=== PATIENT | female | born 1950 | race American Indian/Alaskan Native ===

== ENCOUNTER 2021-03-14 15:08 | Emergency (ER) | payer SELFPAY ==
[2021-03-14] MEDS ORDERED: HEPARIN 10,000 UNITS/10 ML VIAL IV PRN (15:23)
--- NOTE | 2021-03-14 16:07 | XRay Report ---
CHEST 2 VIEWS INDICATION / CLINICAL INFORMATION: Dysrhythmia. COMPARISON: None available. FINDINGS: SUPPORT DEVICES: None. HEART / MEDIASTINUM: No significant abnormality. LUNGS / PLEURA: No significant pulmonary or pleural abnormality. No pneumothorax. ADDITIONAL FINDINGS: No significant additional findings. IMPRESSION: 1. No acute findings. Signer Name: Liliane Higginbotham MD Signed: 03/14/2021 4:02 PM Workstation Name: [id number]
[2021-03-14 16:45] LABS: Creatine Kinase MB 3.7 ng/mL (0.0-4.0)
[2021-03-14 16:47] LABS: Alanine Aminotransferase 7 units/L (7-56); Albumin 4.7 g/dL (3.9-5); BUN/Creatinine Ratio 13; Blood Urea Nitrogen 10 mg/dL (7-17); Calcium 10.3 mg/dL (8.4-10.2); Hemolysis Index 4
[2021-03-14 16:53] LABS: Basophils % (Auto) 0.5 % (0.0-1.8); Eosinophils % (Auto) 0.6 % (0.0-4.3); Hematocrit 41.5 % (30.3-42.9); Hemoglobin 14.2 gm/dl (10.1-14.3); Lymphocytes # (Auto) 0.9 K/mm3 (1.2-5.4); Lymphocytes % (Auto) 18.2 % (13.4-35.0); Mean Corpuscular HGB Conc 34 % (30-34); Mean Corpuscular Volume 87 fl (79-97); Monocytes # (Auto) 0.3 K/mm3 (0.0-0.8); Monocytes % (Auto) 5.2 % (0.0-7.3); Platelet Count 250 K/mm3 (140-440); Red Blood Count 4.78 M/mm3 (3.65-5.03); Red Cell Distribution Width 13.7 % (13.2-15.2)
[2021-03-14 17:04] LABS: INR 0.97 (0.87-1.13)
--- NOTE | 2021-03-15 02:47 | Emergency Department Report ---
ED Palpitations HPI - General Chief Complaint: Arrhythmia/Palpitations Stated Complaint: HEART PALPATATIONS/VOMITING Time Seen by Provider: 03/15/21 02:19 Source: patient Mode of arrival: Ambulatory Limitations: No Limitations - History of Present Illness Initial Comments: 70-year-old female the past medical history diabetes and bipolar disorder presents to the hospital complaining of palpitations today. Patient states she has had similar palpitations for the past when she does not get enough sleep or is anxious. Patient states she ran out of her [id number]-[id number] medication equate p.m. and therefore has not been getting enough sleep. Patient states she had one episode of vomiting in the waiting room because Krishna did not agree with her. She denies chest pain, shortness of breath, rob pain, diarrhea, cough, or fever. Patient is not currently on any psychiatric medication but has been placed on antipsychotics in the past. She is pleasant and denies urinary symptoms, suicidal, homicidal ideation. She is symptom free at this time. P atient states 2 to 3 weeks ago she had bilateral leg ultrasounds to rule out DVT because she was having leg swelling. She states she has not had any recurrent leg swelling or pain - Related Data Allergies Allergy/AdvReac Type Severity Reaction Status Date / Time amitriptyline [From Elavil] Allergy Unknown Verified 03/14/21 15:16 ED Review of Systems ROS: Stated complaint: HEART PALPATATIONS/VOMITING Other details as noted in HPI Comment: All other systems reviewed and negative ED Past Medical Hx - Past Medical History Previous Medical History?: Yes Hx Diabetes: Yes Hx Psychiatric Treatment: Yes (bipolar) - Surgical History Past Surgical History?: Yes Additional Surgical History: partial hyst - Social History Smoking Status: Never Smoker Substance Use Type: None ED Physical Exam - General Limitations: No Limitations - Other Other exam information: General: No acute distress Head: Atraumatic Eyes: normal appearance ENT: Moist mucous membranes Neck: Normal appearance, no midline tenderness Chest: Clear to auscultation bilaterally CV: Regular rate and rhythm Abdomen: Soft, normal bowel sounds, nontender, nondistended, no rebound or guarding Back: Normal inspection Extremity: Normal inspection, full range of motion, no calf tenderness or leg edema Neuro: Alert O x 3, no facial asymmetry, speech clear, no gross motor sensory deficit Psych: Very talkative but pleasant Skin: No rash ED Course Vital Signs 03/14/21 03/15/21 03/15/21 15:19 01:53 01:54 Temperature 98.3 F Pulse Rate 71 Respiratory 18 Rate Blood Pressure 158/75 Blood Pressure 212/135 [Right] O2 Sat by Pulse 97 99 98 Oximetry 03/15/21 03/15/21 01:57 02:00 Temperature Pulse Rate 92 H Respiratory 31 H 22 Rate Blood Pressure 158/75 Blood Pressure [Right] O2 Sat by Pulse 99 99 Oximetry ED Medical Decision Making - Lab Data Result diagrams: 03/14/21 16:04 03/14/21 16:04 Lab Results 03/14/21 03/14/21 03/14/21 Range/Units 16:04 16:04 16:04 WBC 4.9 (4.5-11.0) K/mm3 RBC 4.78 (3.65-5.03) M/mm3 Hgb 14.2 (10.1-14.3) gm/dl Hct 41.5 (30.3-42.9) % MCV 87 (79-97) fl MCH 30 (28-32) pg MCHC 34 (30-34) % RDW 13.7 (13.2-15.2) % Plt Count 250 (140-440) K/mm3 Lymph % (Auto) 18.2 (13.4-35.0) % Hemphill % (Auto) 5.2 (0.0-7.3) % Eos % (Auto) 0.6 (0.0-4.3) % Baso % (Auto) 0.5 (0.0-1.8) % Lymph # (Auto) 0.9 L (1.2-5.4) K/mm3 Hemphill # (Auto) 0.3 (0.0-0.8) K/mm3 Eos # (Auto) 0.0 (0.0-0.4) K/mm3 Baso # (Auto) 0.0 (0.0-0.1) K/mm3 Seg Neutrophils % 75.5 H (40.0-70.0) % Seg Neutrophils # 3.7 (1.8-7.7) K/mm3 PT 13.4 (12.2-14.9) Sec. INR 0.97 (0.87-1.13) APTT 28.0 (24.2-36.6) Sec. Sodium 135 L (137-145) mmol/L Potassium 3.9 (3.6-5.0) mmol/L Chloride 96.3 L (98-107) mmol/L Carbon Dioxide 27 (22-30) mmol/L Anion Gap 16 mmol/L BUN 10 (7-17) mg/dL Creatinine 0.8 (0.6-1.2) mg/dL Estimated GFR > 60 ml/min BUN/Creatinine Ratio 13 % Glucose 161 H (65-100) mg/dL Calcium 10.3 H (8.4-10.2) mg/dL Total Bilirubin 0.40 (0.1-1.2) mg/dL AST 15 (5-40) units/L ALT 7 (7-56) units/L Alkaline Phosphatase 105 (35-129) units/L Total Creatine Kinase 40 (30-135) units/L CK-MB (CK-2) 3.7 (0.0-4.0) ng/mL CK-MB (CK-2) Rel Index 9.2 H (0-4) Troponin T < 0.010 (0.00-0.029) ng/mL Total Protein 8.6 H (6.3-8.2) g/dL Albumin 4.7 (3.9-5) g/dL Albumin/Globulin Ratio 1.2 % TSH (0.270-4.200) mlU/mL 03/14/21 03/14/21 Range/Units 16:04 19:50 WBC (4.5-11.0) K/mm3 RBC (3.65-5.03) M/mm3 Hgb (10.1-14.3) gm/dl Hct (30.3-42.9) % MCV (79-97) fl MCH (28-32) pg MCHC (30-34) % RDW (13.2-15.2) % Plt Count (140-440) K/mm3 Lymph % (Auto) (13.4-35.0) % Hemphill % (Auto) (0.0-7.3) % Eos % (Auto) (0.0-4.3) % Baso % (Auto) (0.0-1.8) % Lymph # (Auto) (1.2-5.4) K/mm3 Hemphill # (Auto) (0.0-0.8) K/mm3 Eos # (Auto) (0.0-0.4) K/mm3 Baso # (Auto) (0.0-0.1) K/mm3 Seg Neutrophils % (40.0-70.0) % Seg Neutrophils # (1.8-7.7) K/mm3 PT (12.2-14.9) Sec. INR (0.87-1.13) APTT (24.2-36.6) Sec. Sodium (137-145) mmol/L Potassium (3.6-5.0) mmol/L Chloride (98-107) mmol/L Carbon Dioxide (22-30) mmol/L Anion Gap mmol/L BUN (7-17) mg/dL Creatinine (0.6-1.2) mg/dL Estimated GFR ml/min BUN/Creatinine Ratio % Glucose (65-100) mg/dL Calcium (8.4-10.2) mg/dL Total Bilirubin (0.1-1.2) mg/dL AST (5-40) units/L ALT (7-56) units/L Alkaline Phosphatase (35-129) units/L Total Creatine Kinase (30-135) units/L CK-MB (CK-2) (0.0-4.0) ng/mL CK-MB (CK-2) Rel Index (0-4) Troponin T < 0.010 (0.00-0.029) ng/mL Total Protein (6.3-8.2) g/dL Albumin (3.9-5) g/dL Albumin/Globulin Ratio % TSH 0.883 (0.270-4.200) mlU/mL - EKG Data -: EKG Interpreted by Me (LVH) EKG shows normal: sinus rhythm, ST-T waves (No STEMI) Rate: normal (69) - Medical Decision Making 70-year-old female presents to the hospital with palpitations prior to arrival. Patient does not have any symptoms of palpitations or persistent tachycardia in the ED peer initial hypotension spontaneously improved without treatment. Patient has bipolar disorder and is not currently on medications. Follow-up with PMD and psych encouraged. Patient plans to obtain more equally p.m. from the drugstore to help with sleeping Critical Care Time: No Critical care attestation.: If time is entered above; I have spent that time in minutes in the direct care of this critically ill patient, excluding procedure time. ED Disposition Clinical Impression: Anxiety Disposition: DC-01 TO HOME OR SELFCARE Is pt being admited?: No Does the pt Need Aspirin: No Condition: Stable Instructions: Managing Anxiety, Adult Additional Instructions: Follow-up with your doctor or doctor/clinic provided. Return if symptoms worsen as indicated by your discharge instructions. Referrals: PRIMARY CARE, [Primary Care Provider] - 3-5 Days [facility] [Provider Group] - 3-5 Days [facility] [Outside] - 3-5 Days
[2021-03-15 03:56] VITALS: BP 158/75
--- NOTE | 2021-03-15 10:10 | Electrocardiograph Report ---
[facility] Test Date: 2021-03-14 Test Time: 15:21:31 Pat Name: PRINCESS RAYA Department: Room: Gender: F [employer] Teacher: JEFF ESPINOSAB: 1950 Requested By: PATRIA COBB Order Number: [id number] Reading MD: Bon Montoya Measurements Intervals [place] Rate: 69 P: 66 AK: 146 QRS: 55 QRSD: 75 T: 182 QT: 415 QTc: 444 Interpretive Statements Sinus rhythm Probable left atrial enlargement Probable LVH with secondary repol abnrm No previous ECG available for comparison Electronically Signed On 03-15-2021 10:10:44 EDT by Bon Montoya
== END 2021-03-15 03:40 | disposition home or self-care (01) ==
LOC: ED 15:08
DX: F41.8 Other specified anxiety disorders (principal); E11.8 Type 2 diabetes mellitus with unspecified complications; F31.9 Bipolar disorder, unspecified; Z98.890 Other specified postprocedural states; Z88.8 Allergy status to other drugs, medicaments and biological substances
CPT/HCPCS: 36415; 71046; 80053; 82550; 82553; 84443; 84484; 85025; 85610; 85730; 93005; 99283

== ENCOUNTER 2021-03-15 15:50 | Emergency (ER) | payer MEDICARE, OTHER ==
[2021-03-15 16:40] LABS: Hematocrit 42.2 % (30.3-42.9); Hemoglobin 14.2 gm/dl (10.1-14.3); Mean Corpuscular HGB Conc 34 % (30-34); Mean Corpuscular Volume 88 fl (79-97); Platelet Count 254 K/mm3 (140-440); Red Cell Distribution Width 14.3 % (13.2-15.2)
--- NOTE | 2021-03-15 16:43 | Cat Scan Report ---
CT head/brain wo con INDICATION / CLINICAL INFORMATION: 70 years Female; CODE STROKE CALL [phone]. TECHNIQUE: Routine CT head without contrast. All CT scans at this location are performed using CT dos e reduction for ALARA by means of automated exposure control. COMPARISON: None. FINDINGS: BRAIN / INTRACRANIAL CONTENTS: There is suggestion of subtle loss of aden/white differentiation in th e insular cortex region on the right when compared with the left. There may be a small focus of throm bus in a branch MCA vessel in the right sylvian fissure, as well. Branch PICA infarct seen inferomedially in the right cerebellar hemisphere. Small lacunar infarcts se en in the gangliocapsular regions. There may be subtle loss of aden/white differentiation in the middle frontal gyral region of the righ t frontal lobe, although findings could be artifactual from hyperostosis frontalis interna. Otherwise, no acute hemorrhage, mass effect, midline shift, hydrocephalus, or acute, large territori al infarct. Mild, diffuse cerebral and cerebellar atrophy. There are moderate areas of decreased attenuation in the white matter of the cerebral hemispheres, as well as the gangliocapsular regions. These are nonspecific findings and may be related to microangio ro (hypertension, diabetes, atherosclerosis), given the patient's age. Pontine disease noted. CRANIOCERVICAL JUNCTION: No significant abnormality. ORBITS: No significant abnormality of visualized orbits. SINUSES / MASTOIDS: Visualized paranasal sinuses and mastoid air cells are essentially clear. ADDITIONAL FINDINGS: Mild temporomandibular joint disease noted. IMPRESSION: 1. Early ischemic changes in the right frontal lobe cannot be excluded as described above. No additio n, there may be a small focus of thrombus in a MCA branch in the sylvian fissure region on the right. 2. Otherwise, no focal mass, hemorrhage, hydrocephalus, or acute, large territorial infarct. CODE STROKE: Exam Completed (TEASEL SETTER/CDT): 03/15/2021 3:27 PM, Central standard time Exam Reviewed (TEASEL SETTER/CDT): 3:33 PM Time of Communication (TEASEL SETTER/CDT): 3:36 PM Licensed Practitioner Receiving Report: Dr. Maldonado Signer Name: Arcenio Rice MD, III Signed: 03/15/2021 4:38 PM Workstation Name: [id number]
--- NOTE | 2021-03-15 16:49 | Emergency Department Report ---
Blank Doc - Documentation Documentation: [facility] Consult Note # Demographics Consult Type: Acute Stroke Level 2 (4.5-24 hrs) Patient Location: Emergency Room First Name: Valeria Last Name: Chung Date of : 1950 Age: 70 Gender: Female Time of Initial Page (): 03/15/2021, 16:12 Time of Return Call (): 03/15/2021, 16:12 # HPI History: 70 yo woman who was last well at 0400 with left sided weakness , dysarthria. no blood thinners. # Scores Time of exam and NIHSS (): 03/15/2021, 16:43 Level of Consciousness 1a: [0] = Alert; keenly responsive LOC Questions 1b: [0] = Answers both questions correctly LOC Commands 1c: [0] = Performs both tasks correctly Best Gaze 2: [2] = Forced deviation Visual 3: [0] = No visual loss Facial Palsy 4: [2] = Partial paralysis Motor Arm Left 5a: [3] = No effort against gravity Motor Arm Right 5b: [0] = No drift Motor Leg Left 6a: [3] = No effort against gravity Motor Leg Right 6b: [0] = No drift Limb Ataxia 7: [0] = Absent Sensory 8: [0] = Normal Best Language 9: [0] = No aphasia Dysarthria 10: [2] = Severe dysarthria Extinction and Inattention 11: [2] = Profound memo-inattention or extinction to more than one modality NIHSS Total: 14 # Data Time Head CT personally read by me (): 03/15/2021, 16:[address]: no bleed # Assessment Impression: acute ischemic stroke suspect lvo # Plan Thrombolytic/Intervention: NOT IV Thrombolysis or IA Intervention candidate Thrombolytic Exclusion: > 4.5 hours Intraarterial Exclusion: pending stat CTA Target Blood Pressure: SBP < 220 Labs: CBC comprehensive metabolic panel lipid panel TSH ua Other: consult on-site neurology service for full work-up and evaluation recommendations If patient has any neurological deterioration please call me back immediately I have discussed my recommendations with the referring provider Additional Recommendations: CTA stat now if LVO is present, stat transfer to IA capable facility if no large vessel occlusion detected, admit for stroke work up, aspirin rectally. MRI brain. echo. Disposition: admit # Logistics Telemedicine: Interactive 2 way audio and visual telecommunication technology was utilized during this visit
[2021-03-15 16:52] LABS: Partial Thromboplastin Time 27.7 Sec. (24.2-36.6)
[2021-03-15 17:23] LABS: BUN/Creatinine Ratio 17; Blood Urea Nitrogen 17 mg/dL (7-17); Calcium 10.5 mg/dL (8.4-10.2); Hemolysis Index 11
[2021-03-15 17:58] LABS: Total Cells Counted 100
[2021-03-15 17:59] LABS: Ovalocytes 1+; Platelet Estimate Consistent w Auto
--- NOTE | 2021-03-15 18:21 | Cat Scan Report ---
CT angio head INDICATION / CLINICAL INFORMATION: 70 years Female; cva. TECHNIQUE: Thin cut axial images obtained through the head during IV bolus contrast administration. S agittal, coronal, and 3 plane MIP reconstructions performed by the technologist. NASCET type criteria used evaluate stenoses. Automated exposure control utilized for radiation reduction purposes. COMPARISON: None available. FINDINGS: INTERNAL CAROTID ARTERIES: Atherosclerotic disease noted. Focal areas of ytrt-dy-iidcxkgc narrowing a re seen in the communicating and cavernous portions of both internal carotid arteries. VERTEBROBASILAR SYSTEM: Right dominant vertebral system seen. Focal area of mild to moderate narrowin g is seen in the proximal to mid basilar artery. Focal area of moderate to high-grade narrowing is se en in the distal left vertebral artery and there may be decreased flow in the left vertebral artery a t the level of foramen magnum. There is also a focal area of narrowing in the right vertebral artery in a bandlike pattern-fibromuscular dysplasia might be consideration. DISTAL BRANCHES: Focal areas of significant narrowing are seen throughout the branches of the anterio r, middle, and posterior cerebral artery territories. Near complete or complete occlusion seen distally in the M1 segment on the right. In addition, there is a near complete occlusion of a branch in the sylvian fissure on the right. Decreased flow is seen in the right MCA territory, when compared with the left. 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 Multiple areas of focal, moderate to high-grade narrowing is seen in branch MCA vessels on the left. ANEURYSM: None identified. ADDITIONAL FINDINGS: Right MCA territory ischemic changes are better defined on the current study whe n compared with recent CT. IMPRESSION: 1. Near complete occlusion of the distal M1 segment on the right. Complete occlusion or near complete occlusion of an MCA branches seen on the right as well. 2. Significant vascular disease seen throughout, as described above in detail. Signer Name: Arcenio Rice MD, III Signed: 03/15/2021 6:17 PM Workstation Name: [id number]
--- NOTE | 2021-03-15 18:30 | Cat Scan Report ---
. CT angio neck INDICATION / CLINICAL INFORMATION: 70 years Female; cva 100 ml omni 350 . TECHNIQUE: Thin cut axial images obtained through the head during IV bolus contrast administration. S agittal, coronal, and 3 plane MIP reconstructions performed by the technologist. NASCET type criteria used evaluate stenoses. All CT scans at this location are performed using CT dose reduction for ALAR A by means of automated exposure control. COMPARISON: None available. FINDINGS: ARCH: Normal aortic arch branching suggested. There is high-grade narrowing of the left subclavian ar juan luis approximately 1 cm distal to its origin, related to atherosclerotic disease. CAROTID ARTERIES: The visualized common and internal carotid arteries are widely patent. VERTEBRAL ARTERIES: Slight right dominant vertebral system seen. Focal areas of moderate to high-grad e narrowing are seen in the proximal left vertebral artery at the C6-7 level. Flow in the left verteb ral artery may be retrograde, because of the proximal left subclavian artery stenosis. ADDITIONAL FINDINGS: Small cysts/nodules seen in the thyroid lobes. Similar findings seen in the isth mus. No dominant nodule appreciated. Thyroid gland may be mildly enlarged. Mild mucosal thickening seen in the ethmoids. Poor dentition noted. IMPRESSION: Left subclavian artery stenosis as described above. There are also areas of narrowing in the nondominant left vertebral artery. Signer Name: Arcenio Rice MD, III Signed: 03/15/2021 6:25 PM Workstation Name: [id number]
--- NOTE | 2021-03-15 18:46 | Emergency Department Report ---
ED General Adult HPI - General Chief complaint: Neuro Symptoms/Deficit Stated complaint: LETHARGIC BIPOLAR VOMITING Time Seen by Provider: 03/15/21 16:37 Source: family Mode of arrival: Wheelchair Limitations: Physical Limitation - History of Present Illness Initial comments: 70-year-old patient who presents to the emergency department from the waiting room for acute onset of left-sided weakness. Of note the patient was seen in this emergency department last night was discharge after a work-up for what appears to be nausea and vomiting. Patient was last seen normal at discharge at 3:30 AM from the emergency department. It appears that the patient stayed in the waiting room from the time of discharge until this acute event happened. Patient is noted to have left facial droop and left-sided weakness specifically of the upper and lower extremities. -: unknown Severity scale (0 -10): 0 Consistency: constant Improves with: none Worsens with: none Treatments Prior to Arrival: none - Related Data Allergies Allergy/AdvReac Type Severity Reaction Status Date / Time amitriptyline [From Elavil] Allergy Unknown Verified 03/14/21 15:16 ED Review of Systems ROS: Stated complaint: LETHARGIC BIPOLAR VOMITING Other details as noted in HPI Comment: Unobtainable due to pts medical conditions ED Past Medical Hx - Past Medical History Previous Medical History?: Yes Hx Diabetes: Yes Hx Psychiatric Treatment: Yes (bipolar) - Surgical History Past Surgical History?: Yes Additional Surgical History: partial hyst - Social History Smoking Status: Never Smoker Substance Use Type: None ED Physical Exam - General Limitations: Physical Limitation ED Course Vital Signs 03/15/21 03/15/21 03/15/21 15:55 17:05 17:33 Temperature 98.8 F Pulse Rate 88 76 Respiratory 18 16 22 Rate Blood Pressure 187/81 O2 Sat by Pulse 96 98 Oximetry 03/15/21 03/15/21 03/15/21 17:34 18:01 18:31 Temperature 97.8 F Pulse Rate 86 76 Respiratory 19 20 Rate Blood Pressure 192/90 198/84 O2 Sat by Pulse 97 98 Oximetry 03/15/21 03/15/21 19:01 19:31 Temperature Pulse Rate 79 78 Respiratory 20 18 Rate Blood Pressure 178/79 164/78 O2 Sat by Pulse 98 97 Oximetry ED Medical Decision Making - Lab Data Result diagrams: 03/15/21 16:30 03/15/21 16:30 Lab Results 03/15/21 03/15/21 03/15/21 Range/Units 16:07 16:30 16:30 WBC 9.2 (4.5-11.0) K/mm3 RBC 4.80 (3.65-5.03) M/mm3 Hgb 14.2 (10.1-14.3) gm/dl Hct 42.2 (30.3-42.9) % MCV 88 (79-97) fl MCH 30 (28-32) pg MCHC 34 (30-34) % RDW 14.3 (13.2-15.2) % Plt Count 254 (140-440) K/mm3 Add Manual Diff Complete Total Counted 100 Seg Neutrophils % Medical Imaging Technologist Seg Neuts % (Manual) 92.0 H (40.0-70.0) % Lymphocytes % (Manual) 8.0 L (13.4-35.0) % Nucleated RBC % Not Reportable Seg Neutrophils # Man 8.5 H (1.8-7.7) K/mm3 Band Neutrophils # 0.0 K/mm3 Lymphocytes # (Manual) 0.7 L (1.2-5.4) K/mm3 Abs React Lymphs (Man) 0.0 K/mm3 Monocytes # (Manual) 0.0 (0.0-0.8) K/mm3 Eosinophils # (Manual) 0.0 (0.0-0.4) K/mm3 Basophils # (Manual) 0.0 (0.0-0.1) K/mm3 Metamyelocytes # 0.0 K/mm3 Myelocytes # 0.0 K/mm3 Promyelocytes # 0.0 K/mm3 Blast Cells # 0.0 K/mm3 WBC Morphology Not Reportable Hypersegmented Neuts Not Reportable Hyposegmented Neuts Not Reportable Hypogranular Neuts Not Reportable Smudge Cells Not Reportable Toxic Granulation Not Reportable Toxic Vacuolation Not Reportable Dohle Bodies Not Reportable Pelger-Huet Anomaly Not Reportable Chriss Rods Not Reportable Platelet Estimate Consistent w auto Clumped Platelets Not Reportable Plt Clumps, EDTA Not Reportable Large Platelets Not Reportable Giant Platelets Not Reportable Platelet Satelliting Not Reportable Plt Morphology Comment Not Reportable RBC Morphology Not Reportable Dimorphic RBCs Not Reportable Polychromasia Not Reportable Hypochromasia Not Reportable Poikilocytosis Not Reportable Anisocytosis Not Reportable Microcytosis Not Reportable Macrocytosis Not Reportable Spherocytes Not Reportable Pappenheimer Bodies Not Reportable Sickle Cells Not Reportable Target Cells Not Reportable Tear Drop Cells Not Reportable Ovalocytes 1+ Helmet Cells Not Reportable Blunt-[place]oquiam Bodies Not Reportable Garner Rings Not Reportable Laura Cells Not Reportable Bite Cells Not Reportable Crenated Cell Not Reportable Elliptocytes Not Reportable Acanthocytes (Spur) Not Reportable Rouleaux Not Reportable Hemoglobin C Crystals Not Reportable Schistocytes Not Reportable Malaria parasites Not Reportable Chaz Bodies Not Reportable Hem Pathologist Commnt No PT 13.7 (12.2-14.9) Sec. INR 1.00 (0.87-1.13) APTT 27.7 (24.2-36.6) Sec. Thrombin Time (15.1-19.6) Sec. Sodium (137-145) mmol/L Potassium (3.6-5.0) mmol/L Chloride (98-107) mmol/L Carbon Dioxide (22-30) mmol/L Anion Gap mmol/L BUN (7-17) mg/dL Creatinine (0.6-1.2) mg/dL Estimated GFR ml/min BUN/Creatinine Ratio % Glucose (65-100) mg/dL POC Glucose 190 H (70-105) mg/dL Calcium (8.4-10.2) mg/dL Troponin T (0.00-0.029) ng/mL 03/15/21 03/15/21 03/15/21 Range/Units 16:30 16:33 16:59 WBC (4.5-11.0) K/mm3 RBC (3.65-5.03) M/mm3 Hgb (10.1-14.3) gm/dl Hct (30.3-42.9) % MCV (79-97) fl MCH (28-32) pg MCHC (30-34) % RDW (13.2-15.2) % Plt Count (140-440) K/mm3 Add Manual Diff Total Counted Seg Neutrophils % Seg Neuts % (Manual) (40.0-70.0) % Lymphocytes % (Manual) (13.4-35.0) % Nucleated RBC % Seg Neutrophils # Man (1.8-7.7) K/mm3 Band Neutrophils # K/mm3 Lymphocytes # (Manual) (1.2-5.4) K/mm3 Abs React Lymphs (Man) K/mm3 Monocytes # (Manual) (0.0-0.8) K/mm3 Eosinophils # (Manual) (0.0-0.4) K/mm3 Basophils # (Manual) (0.0-0.1) K/mm3 Metamyelocytes # K/mm3 Myelocytes # K/mm3 Promyelocytes # K/mm3 Blast Cells # K/mm3 WBC Morphology Hypersegmented Neuts Hyposegmented Neuts Hypogranular Neuts Smudge Cells Toxic Granulation Toxic Vacuolation Dohle Bodies Pelger-Huet Anomaly Chriss Rods Platelet Estimate Clumped Platelets Plt Clumps, EDTA Large Platelets Giant Platelets Platelet Satelliting Plt Morphology Comment RBC Morphology Dimorphic RBCs Polychromasia Hypochromasia Poikilocytosis Anisocytosis Microcytosis Macrocytosis Spherocytes Pappenheimer Bodies Sickle Cells Target Cells Tear Drop Cells Ovalocytes Helmet Cells Blunt-[place]oquiam Bodies Garner Rings Laura Cells Bite Cells Crenated Cell Elliptocytes Acanthocytes (Spur) Rouleaux Hemoglobin C Crystals Schistocytes Malaria parasites Chaz Bodies Hem Pathologist Commnt PT (12.2-14.9) Sec. INR (0.87-1.13) APTT (24.2-36.6) Sec. Thrombin Time 20.0 H (15.1-19.6) Sec. Sodium 140 (137-145) mmol/L Potassium 4.4 (3.6-5.0) mmol/L Chloride 100.9 (98-107) mmol/L Carbon Dioxide 22 (22-30) mmol/L Anion Gap 22 mmol/L BUN 17 (7-17) mg/dL Creatinine 1.0 (0.6-1.2) mg/dL Estimated GFR > 60 ml/min BUN/Creatinine Ratio 17 % Glucose 211 H (65-100) mg/dL POC Glucose 183 H (70-105) mg/dL Calcium 10.5 H (8.4-10.2) mg/dL Troponin T 0.012 (0.00-0.029) ng/mL - Radiology Data Radiology results: report reviewed - Medical Decision Making Since the last time someone spoke to the patient was 3:30 AM that will be time 0 thus the patient is not a TPA candidate. Code stroke was initiated and CT was done which showed concern for MCA stroke on the right side. See CTA of the head and neck was done. I did not receive a phone call for the acute findings of the CTA of the head or neck. 6:55 PM [facility] was contacted and I spoke to the stroke neurologist Dr. Weeks and the patient was discussed in detail concerning findings of the CTA of the head but also of the CTA of the neck which showed subclavian occlusion. Patient was given aspirin and Brilinta Patient was excepted at 1925 Critical Care Time: Yes Critical care time in (mins) excluding proc time.: 35 Critical care attestation.: If time is entered above; I have spent that time in minutes in the direct care of this critically ill patient, excluding procedure time. ED Disposition Clinical Impression: CVA (cerebral vascular accident), Left subclavian artery occlusion Disposition: DC/TX-70 ANOTHER TYPE HLTHCARE Is pt being admited?: No Does the pt Need Aspirin: No Condition: Stable Referrals: PRIMARY CARE, [Primary Care Provider] - 3-5 Days - Assessment Assessment Interval: Baseline - Level of Consciousness 1a. Level of Consciousness: alert/keenly responsive - LOC Questions 1b. LOC Questions: answers both correctly - LOC Command 1c. LOC Commands: performs tasks correctly - Best Gaze 2. Best Gaze: forced deviation - Visual 3. Visual: no visual loss - Facial Palsy 4. Facial Palsy: partial paralysis - Motor Arm 5a. Motor Arm Left: no gravity effort 5b. Motor Arm Right: no drift - Motor Leg 6a. Motor Leg Left: no drift 6b. Motor Leg Right: no gravity effort - Limb Ataxia 7. Limb Ataxia: absent - Sensory 8. Sensory: normal - Best Language 9. Best Language: no aphasia - Dysarthria 10. Dysarthria: severe dysarthria - Extinction and Inattention 11. Extinction/Inattention: visual/tactile inattention - Scoring Total Score: 13 Stroke Severity: Moderate Stroke
[2021-03-15] MEDS ORDERED: ASPIRIN 325 MG TAB PO ONE ×2 (19:48→20:08)
[2021-03-15] MEDS ORDERED: TICAGRELOR 90 MG TAB PO ONE ×2 (19:48→20:08)
[2021-03-15 19:51] VITALS: BP 164/78
[2021-03-15] MEDS ORDERED: ASPIRIN 300 MG RECT SUPP PR ONE ×2 (20:13→20:14)
--- NOTE | 2021-03-18 09:07 | Electrocardiograph Report ---
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
== END 2021-03-15 20:30 | disposition other institution (70) ==
LOC: ED 15:50
DX: I63.9 Cerebral infarction, unspecified (principal); I70.8 Atherosclerosis of other arteries; E11.8 Type 2 diabetes mellitus with unspecified complications; F31.9 Bipolar disorder, unspecified; Z98.890 Other specified postprocedural states; Z88.8 Allergy status to other drugs, medicaments and biological substances
CPT/HCPCS: 70450; 70496; 70498; 80048; 82962; 84484; 85007; 85025; 85610; 85670; 85730; 93005; 99291; Q9967; 36415; 99284